=== PATIENT | female | born 1950 | race Caucasian/White ===

== ENCOUNTER 2018-05-11 18:22 | Emergency (ER) | payer OTHER, MEDICARE ==
[~2018-05-11] VITALS: Ht 154.9 cm; Wt 110.5 kg
[2018-05-11 18:26] VITALS: BP 168/89; TEMP 98
[2018-05-11 19:15] LABS: COLLECTION METHOD CATHETER
[2018-05-11 19:35] LABS: PH 5 (5-8); SQUAMOUS EPITHELIAL None Seen /hpf; URINE APPEARANCE Turbid; URINE BACTERIA None Seen /hpf; URINE BILIRUBIN Negative (NEGATIVE); URINE BLOOD 1+ (NEGATIVE); URINE COLOR Yellow; URINE GLUCOSE Negative (NEGATIVE); URINE KETONE Negative (NEGATIVE); URINE LEUKOCYTE ESTERASE 3+ (NEGATIVE); URINE NITRATE Positive (NEGATIVE); URINE PROTEIN(semi-quant) 2+ (NEGATIVE); URINE RBC 20-50 /hpf; URINE UROBILINOGEN Negative (NEGATIVE)
[2018-05-11] MEDS ORDERED: CEFTIN500 MG PO (20:10)
[2018-05-11] MEDS ORDERED: PYRIDIUM200 M1 PO (20:10)
[2018-05-11 20:35] VITALS: PULSE 67
== END 2018-05-11 20:35 | disposition home or self-care (01) ==
LOC: COL.ER 18:22
PROVIDERS: Emergency Medicine
DX: N39.0 Urinary tract infection, site not specified (principal); Z90.49 Acquired absence of other specified parts of digestive tract

== ENCOUNTER → 2018-05-24 | Outpatient (CLI) | payer MEDICARE, OTHER ==
[~2018-05-24] MED LIST: CEFTIN500 MG PO; PYRIDIUM200 M1 PO
[2018-05-24 16:39] LABS: COLLECTION METHOD CLEAN CATCH
[2018-05-24 16:51] LABS: MUCOUS Present /lpf; PH 6 (5-8); URINE APPEARANCE Clear; URINE BACTERIA Rare /hpf; URINE BILIRUBIN Negative (NEGATIVE); URINE BLOOD Negative (NEGATIVE); URINE COLOR Yellow; URINE GLUCOSE Negative (NEGATIVE); URINE KETONE Negative (NEGATIVE); URINE LEUKOCYTE ESTERASE 3+ (NEGATIVE); URINE NITRATE Negative (NEGATIVE); URINE PROTEIN(semi-quant) Negative (NEGATIVE); URINE UROBILINOGEN Negative (NEGATIVE)
== END ==
LOC: ZCOL.LAB 16:26
PROVIDERS: Family Medicine
DX: N39.0 Urinary tract infection, site not specified (principal)

== ENCOUNTER → 2018-09-19 | Outpatient (CLI) | payer MEDICARE, OTHER ==
[2018-09-19 17:43] LABS: COLLECTION METHOD CLEAN CATCH
[2018-09-19 18:05] LABS: CALCIUM 9.1 mg/dL (8.4-10.2); CREATININE, serum 1.67 (0.52-1.25); PH 6 (5-8); POTASSIUM 4.8 mmol/L (3.4-5.0); SQUAMOUS EPITHELIAL 0-2 /hpf; URINE APPEARANCE Cloudy; URINE BACTERIA Rare /hpf; URINE BILIRUBIN Negative (NEGATIVE); URINE BLOOD 1+ (NEGATIVE); URINE COLOR Yellow; URINE GLUCOSE Negative (NEGATIVE); URINE KETONE Negative (NEGATIVE); URINE LEUKOCYTE ESTERASE 3+ (NEGATIVE); URINE NITRATE Negative (NEGATIVE); URINE PROTEIN(semi-quant) 2+ (NEGATIVE); URINE RBC 20-50 /hpf; URINE UROBILINOGEN Negative (NEGATIVE); URINE WBC >50 /hpf
== END ==
LOC: ZCOL.LAB 17:19
PROVIDERS: Family Medicine
DX: N39.0 Urinary tract infection, site not specified (principal); R03.0 Elevated blood-pressure reading, without diagnosis of hypertension

== ENCOUNTER → 2018-10-03 | Outpatient (CLI) | payer MEDICARE, OTHER ==
[2018-10-03 17:13] LABS: COLLECTION METHOD CLEAN CATCH
[2018-10-03 17:29] LABS: CALCIUM 9.3 mg/dL (8.4-10.2); CREATININE, serum 1.64 (0.52-1.25); POTASSIUM 4.9 mmol/L (3.4-5.0)
[2018-10-03 17:55] LABS: MUCOUS Present /lpf; PH 6 (5-8); SQUAMOUS EPITHELIAL 0-2 /hpf; URINE APPEARANCE Hazy; URINE BACTERIA None Seen /hpf; URINE BILIRUBIN Negative (NEGATIVE); URINE BLOOD 1+ (NEGATIVE); URINE COLOR Yellow; URINE GLUCOSE Negative (NEGATIVE); URINE KETONE Negative (NEGATIVE); URINE LEUKOCYTE ESTERASE 3+ (NEGATIVE); URINE NITRATE Negative (NEGATIVE); URINE PROTEIN(semi-quant) Negative (NEGATIVE); URINE UROBILINOGEN Negative (NEGATIVE); URINE WBC >50 /hpf
== END ==
LOC: ZCOL.LAB 16:51
PROVIDERS: Family Medicine
DX: N39.0 Urinary tract infection, site not specified (principal); I10 Essential (primary) hypertension

== ENCOUNTER → 2018-10-24 | Outpatient (CLI) | payer MEDICARE, OTHER ==
[2018-10-24 16:31] LABS: COLLECTION METHOD CLEAN CATCH
[2018-10-24 17:06] LABS: MUCOUS Present /lpf; PH 7 (5-8); SQUAMOUS EPITHELIAL 0-2 /hpf; URINE APPEARANCE Cloudy; URINE BACTERIA None Seen /hpf; URINE BILIRUBIN Negative (NEGATIVE); URINE BLOOD 1+ (NEGATIVE); URINE COLOR Yellow; URINE GLUCOSE Negative (NEGATIVE); URINE KETONE Negative (NEGATIVE); URINE LEUKOCYTE ESTERASE 3+ (NEGATIVE); URINE NITRATE Negative (NEGATIVE); URINE PROTEIN(semi-quant) Negative (NEGATIVE); URINE UROBILINOGEN Negative (NEGATIVE); URINE WBC >50 /hpf
== END ==
LOC: ZCOL.LAB 16:07
PROVIDERS: Family Medicine
DX: N39.0 Urinary tract infection, site not specified (principal)

== ENCOUNTER 2019-07-07 15:37 | Inpatient (IN) | payer MEDICARE, OTHER ==
[~2019-07-07] VITALS: Ht 154.9 cm; Wt 110.0 kg
[2019-07-07 19:58] VITALS: BP 113/51; PULSE 78; TEMP 97.6
--- NOTE | 2019-07-07 20:00 | NUR ---
Shift report received from LIAN Soto. Patient was transferred from [facility] and this RN contacted their ED to get more information on this patient, as report was never called to [facility] during day shift. The patient is alert and oriented but is very drowsy, which she says has been her normal for a couple of weeks now. Her lungs sound clear/diminished and her heart sounds are normal/regular. She is very obese and her lower legs are large but do not appear edematous. She had a vallejo catheter and R a/c IV on admission to [facility]. Her urine is yellow and clear with a few blood clots in it. She does not voice any concerns other than being tired at this time. Will continue to monitor.
[2019-07-07] MEDS ORDERED: CEFACLOR250 MG PO (20:10)
[2019-07-07] MEDS ORDERED: LEVSIN0.125 M1 PO (20:12)
[2019-07-07] MEDS ORDERED: OMNICEF 300MG300 MG PO (20:13)
[2019-07-07] MEDS ORDERED: SMZ/TMPDS PO (20:18)
[2019-07-07] MEDS ORDERED: PRINIVIL20 MG PO (20:19)
[2019-07-07] MEDS ORDERED: ALLEGRA 180MG180 MG PO (20:22)
[2019-07-08] VITALS (7 sets, daily range): BP systolic 95–126; BP diastolic 45–67; PULSE 79–87; TEMP 98.1–99.3
--- NOTE | 2019-07-08 04:39 | NUR ---
Patient has had an uneventful night. She has slept throughout the night with zero complaints. Will continue to monitor.
--- NOTE | 2019-07-08 11:06 | NUR ---
First visit from the aerospace technician. No needs right now.
[2019-07-08 11:19] LABS: BASO % 0.4 % (0.0-2.0); EOS # 0.1 (0.0-0.7); EOS % 0.6 % (0-4.0); GRAN # 6.5 (1.4-6.5); GRAN % 73.2 % (42.2-75.2); LYMPH # 1.2 (1.2-3.4); MEAN CELL VOLUME 102 fl (80.0-100.0); MEAN CORPUSCULAR HGB CONC 30 g/dl (33.0-37.0); MONO # 1.1 (0.1-0.6); MONO % 12.5 % (1.7-9.3); PLATELET COUNT 377 K/mm3 (130-400); RED BLOOD COUNT 3.22 M/mm3 (4.10-5.30); REDCELL DISTRIBUTION WIDTH-CV 15.3 % (11.5-14.5)
[2019-07-08 11:20] LABS: HEMATOCRIT 32.7 % (37.0-47.0); HEMOGLOBIN 9.8 g/dl (12.5-16.0); MEAN CORPUSCULAR HEMOGLOBIN 30 pg (27.0-31.0)
[2019-07-08 11:25] LABS: ALBUMIN 3.1 gm/dL (3.5-5.0); CALCIUM 8.8 mg/dL (8.4-10.2); CREATININE, serum 4.35 (0.52-1.25); PHOSPHOROUS 5.8 mg/dL (2.5-4.5); POTASSIUM 5.3 mmol/L (3.4-5.0)
--- NOTE | 2019-07-08 11:39 | NUR ---
CALL TO ROSELINE BEAL FOR DR JANE. NOTIFIED OF CRITICAL VENOUS C02 @ 12. REVIWED RENAL PANEL RESULTS. NO NEW ORDERS AT THIS TIME.
--- NOTE | 2019-07-08 16:04 | NUR ---
Health Diagnostics Teacher met with patient to discuss discharge planning. Patient lives with her Milton (ph#[phone]) and reports she is in the process of establishing primary care with Dr. Muñoz. Patient obtains medications from either [facility] in [place] or [place]. Patient uses a walker at home and reports she is normally independent with ADLS. Patient states she has MS and when she is having some difficulty walking, she lays on the ground and stretches. SW reviewed PT/OT recommendation for post acute rehab. Patient states she does not feel she needs post acute rehab and that the only reason she cannot walk right now is due to her UTI. Patient states once UTI clears up, she will be able to go home. Patient was open to Home Health. SW provided Medicare.gov list of agencies that serve [place] and patient states she will review it. SW attempted to contact patient's , Milton and left a message. SW to continue to follow.
--- NOTE | 2019-07-08 18:55 | NUR ---
Pt REPORT RECEIVED FROM CHELY BEAL AT BEDSIDE. PT IS RESTING IN BED WITH EYES OPEN AND TV ON. Pt IS A&OX4 WITH NO S/S OF DISTRESS NOTED. Pt HAS A DING IN PLACE AND CALL LIGHT WITHIN REACH. Pt COMMUNICATED EASILY AND CAN MAKE WANTS/NEEDS KNOWN. WILL CONTINUE TO MONITOR.
--- NOTE | 2019-07-08 21:00 | NUR ---
Pt IS RESTING IN BED WITH EYES OPEN AND TV ON. Pt IS COOPERATIVE WITH CARE AND COMPLIANT WITH MEDICATION REGIMEN. Pt GOT SLIGHTLY IRRITATED AT MED PASS WHEN THIS ACCOUNT PROCESSOR INFORMED HER THAT MEDICATIONS CANNOT BE LEFT IN THE ROOM AND Pt NEEDS TO EITHER TAKE HER ORAL MEDS NOW OR THAT THIS ACCOUNT PROCESSOR CAN BRING THEM TO HER WHEN SHE IS READY. Pt TOOK MEDS AND STATED THAT SHE WAS WAITING FOR A PHONE CALL AND THAT IS WHY SHE WAS WANTING TO HAVE THEM LEFT IN THE ROOM FOR HER. Pt HAS IV FLUIDS INFUSING WITHOUT COMPLICATIONS. CALL LIGHT IS WITHIN REACH AND NO S/S OF DISTRESS ARE NOTED AT THIS TIME. WILL CONTINUE TO MONITOR.
--- NOTE | 2019-07-09 00:01 | NUR ---
Pt DING CLAMPED OFF JUST DISTAL TO THE URINE COLLECTION PORT FOR THE PURPOSE OF OBTAINING A UA. WILL MONITOR URINE OUTPUT IN ABOUT 30 MINUTES TO OBTAIN SPECIMEN AND IF SPECIMEN COLLECTED THEN THE DING WILL BE UNCLAMPED TO ALLOW FREE FLOW OF URINE.
--- NOTE | 2019-07-09 00:45 | NUR ---
URINE SPECIMEN COLLECTED AND SENT TO THE LAB.
[2019-07-09 00:49] LABS: COLLECTION METHOD CATHETER
[2019-07-09 01:00] LABS: PH 5 (5-8); SQUAMOUS EPITHELIAL None Seen /hpf; URINE APPEARANCE Clear; URINE BACTERIA None Seen /hpf; URINE BILIRUBIN Negative (NEGATIVE); URINE BLOOD 2+ (NEGATIVE); URINE COLOR Straw; URINE GLUCOSE Negative (NEGATIVE); URINE KETONE Negative (NEGATIVE); URINE LEUKOCYTE ESTERASE 1+ (NEGATIVE); URINE NITRATE Negative (NEGATIVE); URINE PROTEIN(semi-quant) 1+ (NEGATIVE); URINE UROBILINOGEN Negative (NEGATIVE); URINE WBC >50 /hpf
[2019-07-09 01:07] LABS: URINE PROTEIN:CREAT RATIO 0.72 (0.00-0.14)
--- NOTE | 2019-07-09 03:30 | NUR ---
Pt is resting in bed peacefully at this time with call light within reach. When this expert medical writer obtained Pt UA from catheter Pt appeared to be asleep and was easily aroused by this expert medical writer speaking her name and touching her arm to inform her that this expert medical writer was going to be accessing her vallejo to obtain urine. At this time Pt reported some discomfort in her abdomen and after obtaining UA and unclamping catheter a large amount of urine was noted to be flowing through the vallejo. When this expert medical writer came back to check on Pt after preparing her UA for the lab Pt was once again noted to be resting with eyes closed and did not open her eyes when this expert medical writer quietly spoke her name. As Pt appeared to be asleep this expert medical writer did not wake Pt up to ask if emptying her bladder resolved the discomfort or not and if Pt still wanted the PRN APAP or not. Call light remains within Pt reach and at this time Pt is resting in bed peacefully with eyes closed and no s/s of distress noted. Will continue to monitor.
[2019-07-09 04:18] VITALS: BP 117/48; PULSE 77; TEMP 99
[2019-07-09 07:20] LABS: BASO # 0.1 (0.0-0.2); BASO % 0.6 % (0.0-2.0); EOS # 0.1 (0.0-0.7); GRAN # 6.8 (1.4-6.5); GRAN % 69.4 % (42.2-75.2); LYMPH # 1.7 (1.2-3.4); LYMPH % 16.9 % (20.0-51.0); MEAN CELL VOLUME 102 fl (80.0-100.0); MEAN CORPUSCULAR HGB CONC 30 g/dl (33.0-37.0); MEAN PLATELET VOLUME 9.3 fl (7.4-10.4); MONO # 1.2 (0.1-0.6); MONO % 11.7 % (1.7-9.3); PLATELET COUNT 397 K/mm3 (130-400); RED BLOOD COUNT 3.18 M/mm3 (4.10-5.30); REDCELL DISTRIBUTION WIDTH-CV 15.1 % (11.5-14.5)
[2019-07-09 07:31] LABS: HEMATOCRIT 32.4 % (37.0-47.0); HEMOGLOBIN 9.6 g/dl (12.5-16.0); MEAN CORPUSCULAR HEMOGLOBIN 30 pg (27.0-31.0)
[2019-07-09 07:34] LABS: ALBUMIN 3.1 gm/dL (3.5-5.0); CREATININE, serum 3.45 (0.52-1.25); PHOSPHOROUS 5.2 mg/dL (2.5-4.5); POTASSIUM 5.4 mmol/L (3.4-5.0)
[2019-07-09 08:25] VITALS: BP 120/66; PULSE 81; TEMP 98.4
--- NOTE | 2019-07-09 11:18 | NUR ---
Corn Popper was contacted by patient's daughter, Camille (ph#[phone]) to discuss discharge planning. Camille advised her father, Milton sometimes gets confused and is not the best point of contact. FAUSTO discussed PT recommendations for post acute rehab along with post acute rehab options including SNF, IPR, and Swing Bed. Camille would like to have [facility] screen patient and Camille reports a second preference would probably be [facility]. Camille advised she is going to talk with patient's sister and patient about all of this as she feels patient would benefit from post acute rehab before returning home. SW consulted Angela IPR Director. SW to continue to follow.
--- NOTE | 2019-07-09 16:12 | NUR ---
Facing Cutting Machine Operator followed up with patient about post acute rehab. Patient is agreeable to IPR screen and is also interested in [facility]. FAUSTO contacted [facility] and spoke with LIAN Boucher as Jessa, FAUSTO was out of the office today. Citlaly inquired if patient had a primary care doctor in [place]. FAUSTO followed up with patient who advised she could not remember the name of the doctor she used to see there. FAUSTO faxed referral to [facility] and will continue to follow.
[2019-07-09 20:03] VITALS: BP 130/69; PULSE 76; TEMP 98
[2019-07-10 00:33] VITALS: BP 121/60; PULSE 81; TEMP 98.9
[2019-07-10 04:04] VITALS: BP 124/62; PULSE 78; TEMP 98.8
--- NOTE | 2019-07-10 05:40 | NUR ---
Patient has rested well throughout the night. Continues to be alert and oriented. Noted to have a vallejo catheter and its draining clear, yellow urine. Small amount of sediment noted. IVF continue to left forearm IV. Patient requested PRN Tylenol and this was administered and effective. Continues on antibiotics as ordered. Patient verbalized wanting to look into doing some rehab after she is medically cleared and social work assistant has been consulted for this. Patient denies any further needs. Will continue to monitor.
[2019-07-10 06:24] LABS: BASO # 0.1 (0.0-0.2); BASO % 0.5 % (0.0-2.0); EOS # 0.2 (0.0-0.7); EOS % 1.5 % (0-4.0); GRAN # 7.8 (1.4-6.5); GRAN % 71.3 % (42.2-75.2); HEMATOCRIT 31.9 % (37.0-47.0); HEMOGLOBIN 9.7 g/dl (12.5-16.0); LYMPH # 1.7 (1.2-3.4); LYMPH % 15.6 % (20.0-51.0); MEAN CELL VOLUME 101 fl (80.0-100.0); MEAN CORPUSCULAR HEMOGLOBIN 31 pg (27.0-31.0); MEAN CORPUSCULAR HGB CONC 30 g/dl (33.0-37.0); MEAN PLATELET VOLUME 9.2 fl (7.4-10.4); MONO # 1.2 (0.1-0.6); MONO % 10.7 % (1.7-9.3); PLATELET COUNT 382 K/mm3 (130-400); RED BLOOD COUNT 3.16 M/mm3 (4.10-5.30); REDCELL DISTRIBUTION WIDTH-CV 14.8 % (11.5-14.5)
[2019-07-10 06:34] LABS: ALBUMIN 3.1 gm/dL (3.5-5.0); CREATININE, serum 2.63 (0.52-1.25); PHOSPHOROUS 4.5 mg/dL (2.5-4.5); POTASSIUM 4.9 mmol/L (3.4-5.0)
--- NOTE | 2019-07-10 07:47 | NUR ---
critical CO2 of [address] Mijares. no orders given.
--- NOTE | 2019-07-10 07:50 | NUR ---
PT INCONTINENT OF STOOL. PT CLEANED UP, GOWN CHANGED, CJ/CATH CARE PERFORMED. LIGHT BROWN LIQUID STOOL, NO FOUL ODOR PRESENT. PT COMPLAINING OF PAIN 5/10 AND DESCRIBED IT "NORMAL MS PAIN, LEG MUSCLE TWITCHING.". FRESH ICE WATER BROUGHT IN. EXCORIATION UNDER LEFT BREAST PRESENT, NOT OPEN. CJ AREA INTACT NOT REDENNED. BED IN LOW POSITION, PT IN POOR SPIRITS. NO OTHER NEEDS AT THIS TIME. PT USED 2 PEOPLE TO GET HER UP.
--- NOTE | 2019-07-10 09:30 | NUR ---
PT INCONTINENT OF ANOTHER LIQUID BROWN STOOL. CJ CARE/DING CARE PROVIDED, BED LINENS CHANGED, PT UP TO CHAIR.
[2019-07-10] MEDS ORDERED: SODIUM BICARBO650 MG PO (10:27)
--- NOTE | 2019-07-10 11:02 | NUR ---
Steel Erecting Pusher was notified by Dr. Laguerre that patient to discharge today. SW met with patient who advised her first preference is [facility] and second preference is [facility]. FAUSTO spoke with Angela, [facility] Director who advised she would be able to accept patient today. FAUSTO contacted Jessa Steel Erecting Pusher at [facility] and notified them that first preference accepted. FAUSTO contacted patient's daughter, Camille and notified her that patient will discharge to [facility] today and provided phone number for IPR unit desk. No additional needs at this time.
--- NOTE | 2019-07-10 12:03 | NUR ---
DING DC'D, CJ CARE PROVIDED, IV'S DC'D. NO OTHER NEEDS AT THIS TIME.
--- NOTE | 2019-07-10 16:32 | NUR ---
GAVE REPORT TO LIAN HANDY ON IPR.
[2019-07-10 17:29] VITALS: BP 124/62; PULSE 78; TEMP 98.8
--- NOTE | 2019-07-10 17:50 | NUR ---
DAUGHTER CALLED WANTING AN UPDATE ON PT'S CARE. PT DISCHARGE PAPERWORK COMPLETED, PT TRANSFERRED OVER TO IPR.
== END 2019-07-10 17:50 | DRG 690 ==
LOC: MEDICAL 15:37
PROVIDERS: ADMIT Internal Medicine Nephrology
DX: N39.0 Urinary tract infection, site not specified (principal); N17.9 Acute kidney failure, unspecified; E87.2 Acidosis; N18.3 Chronic kidney disease, stage 3 (moderate); I12.9 Hypertensive chronic kidney disease with stage 1 through stage 4 chronic kidney disease, or unspecified chronic kidney disease; E78.5 Hyperlipidemia, unspecified; H54.42A3 Blindness left eye category 3, normal vision right eye; F32.9 Major depressive disorder, single episode, unspecified; E66.01 Morbid (severe) obesity due to excess calories; E87.5 Hyperkalemia; E83.39 Other disorders of phosphorus metabolism; H35.30 Unspecified macular degeneration; G35 Multiple sclerosis; Z91.81 History of falling; Z90.49 Acquired absence of other specified parts of digestive tract; Z87.891 Personal history of nicotine dependence
CPT/HCPCS: J0696

== ENCOUNTER 2019-07-10 15:54 | Inpatient (IN) | payer MEDICARE, OTHER ==
[~2019-07-10] VITALS: Ht 154.9 cm; Wt 113.6 kg
[~2019-07-10 15:54] MED LIST changes: +ALLEGRA 180MG180 MG PO; +CEFACLOR250 MG PO; +LEVSIN0.125 M1 PO; +OMNICEF 300MG300 MG PO; +PRINIVIL20 MG PO; +SMZ/TMPDS PO; +SODIUM BICARBO650 MG PO
[2019-07-10 18:00] VITALS: BP 121/50; PULSE 76; TEMP 98.2
--- NOTE | 2019-07-10 18:22 | NUR ---
Patient to room from medical via wheelchair. Oriented to room. Patient denies pain. Explain that if she needs to get out of bed or chair she will need to use call light and have assistance. Patient says that she has been having diarrhea due to excess stool softeners being given. Patient denies concerns or needs at this time.
[2019-07-10 18:38] VITALS: BP 121/50; PULSE 76; TEMP 98.2
--- NOTE | 2019-07-11 00:47 | NUR ---
PATIENT DOING WELL TONIGHT. UP TO BATHROOM FREQUENTLY AND IS C/O BURNING DURING URINATION. EXPLAINED TO PATIENT THAT SHE HAD A UTI WHEN SHE GOT HERE AND IS PROBABLY GOING TO HAVE SOME PAIN FOR A WHILE. PRN TYLENOL GIVEN. HAS HAD X2 SMALL SOFT STOOLS. INCONTINENT AT TIMES. SCDS ON. NO FURTHER NEEDS AT THIS TIME. WILL CONTINUE TO MONITOR.
[2019-07-11 03:37] VITALS: BP 106/55; PULSE 73; TEMP 97.6
--- NOTE | 2019-07-11 07:33 | NUR ---
Lying in bed with eyes closed. Respirations even and unlabored. Opens eyes when name called out. Denies pain at this time. No needs.
--- NOTE | 2019-07-11 08:18 | NUR ---
Patient requests Tylenol due to feeling stiff this morning. Administered Tylenol as prescribed. Patient denies further needs.
--- NOTE | 2019-07-11 10:41 | NUR ---
Michel dexter room with OT.
--- NOTE | 2019-07-11 11:35 | NUR ---
Patient in room working with PT.
--- NOTE | 2019-07-11 12:36 | NUR ---
Sitting up in chair with eyes open watching TV. Denies complaints or needs at this time.
--- NOTE | 2019-07-11 15:14 | NUR ---
Lying in bed with eyes closed. Respirations even and unlabored. No signs or symptoms of discomfort noted at this time.
[2019-07-11 15:50] VITALS: BP 132/63; PULSE 65; TEMP 98
--- NOTE | 2019-07-11 18:15 | NUR ---
Lying in bed with eyes open. Patient says that she had a busy day with her therapies and is tired. Patient denies needs at this time.
--- NOTE | 2019-07-11 20:45 | NUR ---
PT ASSISTED TO BATHROOM FREQUENTLY. PT WAS ASSISTED BY BAND TUMBLER TO BATHROOM AND 30 MINUTES LATER ASSISTED AGAIN TO THE BATHROOM. PT USES WALKER/GAITBELT AND GAIT IS SLOW BUT STEADY. PT ASSISTED BACK INTO BED. PT HAS A HARDTIME GETTING HER RIGHT LEG BACK INTO BED. RIGHT LEG IS LIFTED UP FOR HER AND THEN THE LEFT LEG. PT IN BED WITH HOB ELEVATED TO 45 DEGREE ANGLE, DENIES PAIN OR DISCOMFORT AND HAS CALL LIGHT WITHIN REACH.
--- NOTE | 2019-07-12 05:46 | NUR ---
PT HAS GOTTEN UP ALMOST EVERY HOUR TO USE THE BATHROOM. PT ALSO HAS BEEN INCONTINENT WHEN GETTING UP OUT OF BED, CANNOT CONTROL BLADDER. PT ALSO, WENT TO THE BATHROOM AND 10 MINUTES LATER AFTER GETTING BACK INTO BED HAD TO GO TO THE BATHROOM AGAIN AND WAS ALSO INCONTINENT. PT HAS A HARD TIME LIFTING HER FEET BACK INTO BED, EACH TIME SHE WAS ASSISTED WITH GETTING LEGS BACK IN BED. CALL LIGHT WITHIN REACH.
[2019-07-12 06:03] VITALS: BP 117/52; PULSE 70; TEMP 98.3
[2019-07-12 07:33] LABS: BASO % 0.4 % (0.0-2.0); EOS # 0.3 (0.0-0.7); EOS % 2.9 % (0-4.0); GRAN # 6.2 (1.4-6.5); GRAN % 66.4 % (42.2-75.2); LYMPH % 21.8 % (20.0-51.0); MEAN CELL VOLUME 99 fl (80.0-100.0); MEAN CORPUSCULAR HGB CONC 31 g/dl (33.0-37.0); MEAN PLATELET VOLUME 9.8 fl (7.4-10.4); MONO # 0.8 (0.1-0.6); MONO % 8.1 % (1.7-9.3); PLATELET COUNT 381 K/mm3 (130-400); RED BLOOD COUNT 3.02 M/mm3 (4.10-5.30); REDCELL DISTRIBUTION WIDTH-CV 14.5 % (11.5-14.5)
[2019-07-12 07:38] LABS: HEMOGLOBIN 9.2 g/dl (12.5-16.0); MEAN CORPUSCULAR HEMOGLOBIN 30 pg (27.0-31.0)
[2019-07-12 07:41] LABS: CREATININE, serum 1.93 (0.52-1.25); MAGNESIUM 1.8 mg/dL (1.6-2.3); PHOSPHOROUS 3.6 mg/dL (2.5-4.5); POTASSIUM 4.5 mmol/L (3.4-5.0)
--- NOTE | 2019-07-12 09:46 | NUR ---
Bladder scan completed due to patient having to use the bathroom multiple times through the night. Found 185 ml at the most in bladder. Still having pressure pain with urination, frequency with urination and incontinence at times due to not getting to the bathroom in time.
--- NOTE | 2019-07-12 17:04 | NUR ---
Antique Repairer met with patient to discuss discharge planning. Patient lives in [place] with her , Milton (ph#[phone]). Patient's daughters are Caroline (ph#[phone]) and Camille (ph#[phone]). Patient reports she is trying to establish primary care with Dr. Muñoz in [place]. Patient obtains medications from either [facility] in [place] or [facility] in [place]. Patient has a front wheeled and a four wheeled walker at home. Patient states she is interested in getting a lift chair. Patient does not have Advance Directives at this time. SW to continue to follow.
--- NOTE | 2019-07-12 18:21 | NUR ---
Patient resting in bed at this time, call light in reach and bed alarm is set. See new orders for Diflucan, Azo and Desenex started today. Patient denies questions at this time.
--- NOTE | 2019-07-12 19:45 | NUR ---
Received report from Maricruz. Patient is awake, lying on bed. Denies any pain. Assisted her in the bathroom with the use of gaitbelt and walker. Assisted her back in the bed and had to help her lift both legs. Call light within reach.
[2019-07-12 20:34] VITALS: BP 134/50; PULSE 72; TEMP 98.1
[2019-07-13 04:55] VITALS: BP 127/79; PULSE 77; TEMP 98.3
--- NOTE | 2019-07-13 06:08 | NUR ---
Patient denies any pain the whole shift. She's been up a couple times to go to the bathroom to urinate, assisted with a walker and use of gaitbelt. Otherwise, she had an uneventful night.
--- NOTE | 2019-07-13 09:33 | NUR ---
PATIENT ASSESSMENT COMPLETED. SHE IS UP IN THE CHAIR WAITING FOR PT. SHE DENIES ANY PAIN AT REST, DOES HAVE PAIN WITH URINATION
--- NOTE | 2019-07-13 10:47 | NUR ---
PATIENT UP TO CHAIR TO WATCH TELEVISION.
--- NOTE | 2019-07-13 12:00 | NUR ---
PATIENT UP IN THE CHAIR EATTING LUNCH. NO FURTHER NEEDS AT THIS TIME
[2019-07-13 17:30] VITALS: BP 113/47; PULSE 69; TEMP 98.1
--- NOTE | 2019-07-13 18:27 | NUR ---
PATIENT AMBULATES BACK AND FORTH TO THE BATHROOM WITHOUT DIFFICULTY. STANDBY TO TOUCH ASSISTANCE PROVIDED WITH HER WHEELED WALKER.
--- NOTE | 2019-07-14 05:29 | NUR ---
PATIENT HAS BEEN USING THE BATHROOM ABOUT EVERY HOUR THROUGHOUT THE NIGHT. PATIENT COMPLAINS THAT IT ROSALES WHEN SHE URINATES. AZO WAS GIVEN TO THE PATIENT BUT SHE SAID THAT IT REALLY DID NOT HELP. WILL REPORT ON TO BUSINESS DEVELOPMENT CONSULTANT ABOUT THE PATIENTS NIGHT.
[2019-07-14 05:41] VITALS: BP 115/50; PULSE 64; TEMP 97.7
--- NOTE | 2019-07-14 06:58 | NUR ---
resting in chair, bedside shift report received from LIAN Parker, assisted up to bathroom
--- NOTE | 2019-07-14 08:15 | NUR ---
remains up in chair after breakfast, full assessment completed, see interventions for further info
--- NOTE | 2019-07-14 10:15 | NUR ---
assisted up to bathroom 2-3 times, ambulates with slow steady gait, denies pain or needs
--- NOTE | 2019-07-14 17:20 | NUR ---
has been assisted up to the bathroom numerous times, otherwise has been in recliner, dozing at short intervals and watching TV, has denied needs
--- NOTE | 2019-07-14 18:45 | NUR ---
bedside shift report given to LIAN Gonsales
[2019-07-14 18:49] VITALS: BP 117/36; PULSE 73; TEMP 98.6
--- NOTE | 2019-07-14 18:50 | NUR ---
Pt REPORT RECEIVED FROM SOCRATES BEAL AT BEDSIDE. Pt IS SITTING IN RECLINER AND STATES THAT SHE HAS SOME MILD PAIN SECONDARY TO URINATING/UTI. Pt REPORTS THAT SHE NEEDS TO VOID ABOUT EVERY HOUR AND HAS URGENCY THAT MAKES IT "IMPOSSIBLE" TO WAIT FOR STAFF. CALL LIGHT IS AT PT SIDE. WILL CONTINUE TO MONITOR.
--- NOTE | 2019-07-14 22:51 | NUR ---
Pt has required asssitance to the restroom to void about every q45-75 minutes since shift change with increased frequency at the start of the shift. Pt is able to transfer herself to her feet from her recliner and bed and uses walker for ambulation. Gait belt and standby assist utilized with each toileting. Pt has been cooperative with care and compliant with medication regimen as well as with the call lights to request assistance before transfering. Pt is able to manage toileting hygiene and adjustment of clothing independantly and other than standby assist due to fall risk Pt performs all tasks independently. Pt is A&Ox4, is able to make wants/needs known at will, communicates with clear speech, and remains in stable condition at this time with no s/s of distress noted. At this time Pt is resting in bed with call light at her side and bedside table at the bedside with beverage and personal items within reach. Will continue to monitor.
--- NOTE | 2019-07-15 02:39 | NUR ---
Pt has been resting in bed peacefully with eyes closed inbetween urination episodes. Pt remains compliant with call light and bed alarm is verified as activated with rounds and each toileting. Call light is at Pt side. No s/s of distress noted. Will continue to monitor. Pt continues to state that her only pain is when she is urinating.
--- NOTE | 2019-07-15 03:30 | NUR ---
Pt assisted to restroom to void. Pt consistently uses call light to notify this press writer of her toileting needs. Call light is at Pt side. Will continue to monitor. Bed alarm reactivated once Pt was back in bed.
[2019-07-15 05:17] VITALS: BP 152/63; PULSE 70; TEMP 98.5
[2019-07-15 06:57] LABS: CALCIUM 9.2 mg/dL (8.4-10.2); CREATININE, serum 2.03 (0.52-1.25); MAGNESIUM 1.8 mg/dL (1.6-2.3); POTASSIUM 5.1 mmol/L (3.4-5.0)
[2019-07-15 07:01] LABS: MEAN CELL VOLUME 99 fl (80.0-100.0); MEAN CORPUSCULAR HGB CONC 31 g/dl (33.0-37.0); PLATELET COUNT 380 K/mm3 (130-400); RED BLOOD COUNT 3.14 M/mm3 (4.10-5.30)
[2019-07-15 07:10] LABS: HEMOGLOBIN 9.5 g/dl (12.5-16.0); MEAN CORPUSCULAR HEMOGLOBIN 30 pg (27.0-31.0)
--- NOTE | 2019-07-15 14:33 | NUR ---
Spoke w/ pt about d/c planning. Informed her the team is thinking of d/c on 07/17/19, which she seemed fine w/. Told her the team likes to do Family meetings to explain how she has been doing, which she thought sounded good. Asked her if her family could do tomorrow at 1:00 pm. She told SW that she will talk to her & daughter but didn't think it should be a problem.
--- NOTE | 2019-07-15 15:00 | NUR ---
PATIENT IS SITTING UP IN THE BEDSIDE CHAIR. PATIENT IS A&OX4. VSS. BOWEL SOUNDS ACTIVE ALL FOUR QUADRANTS. PATIENT TOLERATING DIET WITHOUT COMPLAINTS OF N/V. GENERALIZED WEAKNESS NOTED. POSITIVE PEDAL PULSES EQUAL BILATERALLY. 1+ PITTING-EDEMA TO BLE. PATIENT MAIN COMPLAINT IS URINARY BURNING WHILE VOIDING. PATIENT OTHERWISE DENIES PAIN. PATIENT STATES THAT THE LEVSIN SEEMS TO BE HELPING. PATIENT REFUSING AZO, PATIENT STATES THAT IT DOES NOT GIVE HER RELIEF. CALL LIGHT WITHIN REACH. REPEAT LEVSIN DOSE GIVEN. NO NEEDS AT THIS TIME.
[2019-07-15 17:00] VITALS: BP 123/47; PULSE 62; TEMP 97.8
--- NOTE | 2019-07-15 18:35 | NUR ---
REPORT GIVEN TO LIAN MOYA.
--- NOTE | 2019-07-15 20:02 | NUR ---
PT SITTING IN RECLINER. PT ADVISES THAT SHE IS JUST TIRED FROM GETTING UP SO MUCH DURING THE NIGHT. PT DENIES PAIN OR DISCOMFORT AND RESP EVEN AND UNLABORED. CALL LIGHT WITHIN REACH. RASH UNDER LEFT BREAST RESOLVED. PT ADVISES THAT SHE GETS THAT WAY FROM NOT WEARING A BRA AND SWEATING.
--- NOTE | 2019-07-16 04:17 | NUR ---
PT ADVISED EARLIER THIS SHIFT THAT SHE HAS BEEN GOING TO THE BATHROOM BY HER SELF AND THAT SHE WANTED TO SLEEP IN THE RECLINER BECAUSE IT IS EASIER FOR HER TO GET UP. PT ADVISED THAT SHE IS STILL URINATING FREQUENTLY. PT WAS ADVISED THAT IF SHE NEEDS HELP, DO NOT HESITATE TO CALL. WE WILL COME RIGHT AWAY, SOON WE CAN. PT HAS NOT CALLED THIS NIGHT FOR HELP. PT IS IN RECLINER SLEEPING WITH CALL LIGHT WITHIN REACH. NO ISSUES OR PROBLEMS THIS SHIFT.
[2019-07-16 04:55] VITALS: BP 123/40; PULSE 72; TEMP 98.5
--- NOTE | 2019-07-16 08:29 | NUR ---
Patient resting in recliner awaiting ST this morning. Patient reports pain with urination and that levisin and azo not working. She will be following up with Urology in the future.
--- NOTE | 2019-07-16 13:00 | NUR ---
A Family Conference was conducted with pt & pt's , Milton, & daughter, Camille, via phone. Also present was PT, OT, SW, & Senior Java Web Application Developer. Senior Java Web Application Developer started by explaining the purpose of the meeting. The therapists explained how pt has been functioning & making good progress. Informed them of d/c for 07/17/19 w/ recommendation for Home Health PT/OT. They were fine w/ this plan & very pleased to hear how will she was doing. The family asked some questions, which team answered.
--- NOTE | 2019-07-16 13:08 | NUR ---
Call placed to Dr. Pantoja to schedule follow up visit - Patient will be seen on 07/24 at 3:[address] Laguerre office was called and patient will be seen 08/04 at 11:15 am @ [facility]. Awaiting return call from Dr. Reynoso to set up initial appointment with patient.
--- NOTE | 2019-07-16 15:21 | NUR ---
FAUSTO met with the patient to discuss the recommendation PT/OT with [facility]. FAUSTO provided Medicare.[employer]'s list of agencies that serve the [facility]. The patient would like to discuss it with her before making a decision. Will continue to monitor.
[2019-07-16 16:14] VITALS: BP 131/54; PULSE 71; TEMP 99.2
--- NOTE | 2019-07-16 16:52 | NUR ---
FAUSTO met with the patient to discuss HHS. The patient declined HHS but was open to outpatient physical therapy if it was covered by insurance. The patient was also open to home with home exercises. FAUSTO contacted [facility] PT department, left message. FAUSTO informed the patient and the patient's nurse.
--- NOTE | 2019-07-16 19:55 | NUR ---
Patient's follow up appointments have all been made. Patient has chosen not to have Home Health Services when going home tomorrow. Still uncertain about PT/OT outpatient at this time. SW will update this nurse about this tomorrow morning. Patient continues on her antibiotic for UTI and is tolerating well. She continues to have urgency with urination and discomfort with urination and follow up with urology has been set. Reddened area under left breast continuing to heal and desenex has been effective for treatment of this. Reported off to night nurse.
--- NOTE | 2019-07-16 22:23 | NUR ---
PATIENT DOING WELL TONIGHT. DENIES PAIN EXCEPT WITH URINATION. REFUSED NEEDS. TOOK SCHEDULED MEDICATIONS WITHOUT ISSUE, REFUSED DESENEX TO L BREAST, STATES THIS MAKES HER MORE UNCOMFORTABLE THAN ANYTHING ELSE. NO FURTHER NEEDS AT THIS TIME. WILL CONTINUE TO MONITOR.
[2019-07-17 05:03] VITALS: BP 136/61; PULSE 73; TEMP 98.3
[2019-07-17] MEDS ORDERED: Desenex/Lotrimin AF TP (09:46)
[2019-07-17] MEDS ORDERED: SODIUM BICARBO650 MG PO (09:47)
--- NOTE | 2019-07-17 10:25 | NUR ---
Patient has a follow up appointment with Dr. Hernandez on 07/24/19 at 2:00 pm.
--- NOTE | 2019-07-17 10:27 | NUR ---
The patient is to tentatively discharge home today, 07/16. The patient was agreeable to outpatient PT/OT at [facility] in [place]. But she would like to set up the appointment herself. FAUSTO contacted Tricia at [facility] and they confirmed they would contact the patient to set up appointment. FAUSTO faxed discharge orders to Tricia. FAUSTO presented the IM form to the patient to discuss the IM form. The patient understood and signed the form. A copy was provided to the patient and original was placed in the chart. There are no additional needs at this time.
--- NOTE | 2019-07-17 12:20 | NUR ---
Patient Health Summary, Discharge Summary, and Home Meds printed and reviewed with patient. Stressed importance of follow up appointments. Belongings gathered by RN/Maricruz including glasses, wallet, boateng, personal clothes, wallet, suitcase, purse, phone and phone roundhouse supervisor. Patient transported via wheelchair [facility] [employer] and seatbelted for ride home with patient's spouse. Patient denied any questions.
== END 2019-07-17 12:20 | disposition home or self-care (01) | DRG 59 ==
PROVIDERS: ADMIT Internal Medicine
DX: G35 Multiple sclerosis (principal); N39.0 Urinary tract infection, site not specified; E87.2 Acidosis; N17.9 Acute kidney failure, unspecified; E87.5 Hyperkalemia; I12.9 Hypertensive chronic kidney disease with stage 1 through stage 4 chronic kidney disease, or unspecified chronic kidney disease; R30.0 Dysuria; N18.3 Chronic kidney disease, stage 3 (moderate); E78.5 Hyperlipidemia, unspecified; H54.42A3 Blindness left eye category 3, normal vision right eye; F32.9 Major depressive disorder, single episode, unspecified; E83.39 Other disorders of phosphorus metabolism; D64.9 Anemia, unspecified; Z90.49 Acquired absence of other specified parts of digestive tract; Z87.442 Personal history of urinary calculi; Z87.891 Personal history of nicotine dependence
CPT/HCPCS: 99222-AI; 99231-AI; 99232-AI; 99239; J1644